=== PATIENT | female | born 1940 | race Caucasian/White ===

== ENCOUNTER 2023-10-02 03:58 | Emergency (ER) | payer MEDICARE, SELFPAY ==
[2023-10-02 04:01] VITALS: BP 169/112
[2023-10-02 05:02] VITALS: BMI 41.4
[2023-10-02 05:03] VITALS: BP 155/79
[2023-10-02 05:04] VITALS: BP 155/79
[2023-10-02 06:00] VITALS: BP 149/80
--- NOTE | 2023-10-02 06:40 | ED.GENMED ---
History of Present Illness
General
Chief Complaint: Vaginal Bleeding
Source: patient
Exam Limitations: none
Time Seen by Provider: 10/02/23 06:29
Nursing documentation reviewed up to this point in time: agreed with
Travel History
Have you had any contact with someone who has COVID-19?: No
Do you have any symptoms of coronavirus? Fever > 100 degrees, chills, cough, shortness of breath, sore throat, loss of taste or smell, muscle aches, or headache?: No
History of Present Illness
History of Present Illness:
83 yo female presents to the emergency department complaining of vaginal bleeding just prior to arrival, at about 3:30 AM. She has had vaginal irritation and itching for the past few days. She has a history of vaginitis in the past.
Past History
Past History
ED Past Medical History: HTN, Hypercholesterolemia and Renal failure
ED Past Surgical History: Gynecological (D&C) and Other (Cataracts)
Social History
Tobacco: Non-smoker
Alcohol: None
Drug: None
Living: with family
Review of Systems
Review of Systems
Allergies reviewed?: Yes
All Other Systems: Not applicable
Constitutional: Reports no symptoms
EENT: Reports no symptoms
Respiratory: Reports no symptoms
Cardiac: Reports no symptoms
ABD/GI: Reports no symptoms
: Reports bleeding and other (Vaginal itching and irritation)
Musculoskeletal: Reports no symptoms
Skin: Reports no symptoms
Neurological: Reports no symptoms
Endocrine: Reports no symptoms
Hematologic/Lymphatic: Reports no symptoms
Psychiatric: Reports no symptoms
Phy Exam
Physical Exam
Physical Exam:
Physical Exam
General: no apparent distress, not acutely ill
Neck: supple. no meningeal signs. normal posterior pharynx
HEENT: Pupils equal round reactive to light, EOMI
Lungs: no acute respiratory distress.
Abdomen: not tender. no CVAT
Neuro: alert and oriented. no focal neurological deficits
Skin: no rash
Psychiatric: well kept. interactive and cooperative
Extremities: no edema. good distal pulses
Genitourinary Exam Female
Exam Female: no adnexal tenderness and vaginal bleeding (External abrasion left)
Vaginal Exam: other (Left-sided abrasion)
Vaginal Bleeding: minimal (External bleeding)
Vaginal Discharge: other (Whitish)
Course
Vital Signs
Initial and Last Documented VS:
Initial Vital Signs
Temp Pulse Resp BP Pulse Ox
98 F 112 20 169/112 95
10/02/23 04:01 10/02/23 04:01 10/02/23 04:01 10/02/23 04:01 10/02/23 04:01
Last Documented Vital Signs
Temp Pulse Resp BP Pulse Ox
98 F 104 18 155/79 97
10/02/23 04:01 10/02/23 05:03 10/02/23 05:03 10/02/23 05:04 10/02/23 05:03
MDM/Problems Addressed
Differential Diagnosis Includes:
Vaginal bleeding, vaginal candidiasis, vaginal laceration
MDM/Problems Addressed:
83-year-old female with external vaginal bleeding excoriation from vaginal candidiasis. Treat with Diflucan and clotrimazole.
*Pulse Oximetry
Patient hypoxic: no
*EKG
Interpreted by ED Provider?: NA
*Identity Management Developer Interpretation
Rate: Identity Management Developer- N/A
*Critical Care Note
Total Time (30-74mins, 75-104mins- exclusive of procedures): Not Applicable
Patient Management
Social determinants of health affecting care: Living situation
Escalation/DeEscalation of care consider admission/obs:
Admit not indicated
ED Attending Note
-
Portions of this chart may have been created with voice recognition software.� Occasional wrong word or��sound alike� substitutions may have occurred due to the inherent limitations of voice recognition software.
Discharge Plan
Departure
Patient Disposition: Home (Routine Discharge)
Date of Disposition: 10/02/23
Time of Disposition: 06:46
Patient with high blood pressure during this ER visit?: Yes
Condition: Good
Discharge Problem:
Acute candidiasis of vulva and vagina, External vaginal abrasion
Instructions: Vaginal Yeast Infection, Adult ED, BLOOD PRESSURE
Prescriptions:
New
clotrimazole [Clotrimazole-7] 1 % cream
1 appful vaginal HS Qty: 45 0RF
No Action
acetaminophen [Tylenol Arthritis] 650 mg Tablet Extended Release
650 mg PO DAILY
levothyroxine 75 mcg Tablet
75 mcg PO DAILY
simvastatin 20 mg Tablet
20 mg PO HS
hydrochlorothiazide 25 mg Tablet
25 mg PO DAILY
lisinopril 40 mg Tablet
40 mg PO HS
Referrals:
Saloni Bangura DO [Family Provider] - Call in 1-3 days for appt
Interventions
Interventions:
*Risk Screen - Suicide Last Done: 10/02/23 04:01
*General Assessment Last Done: 10/02/23 04:01
*Neglect/Abuse Screening Last Done: 10/02/23 04:01
ED- Fall Risk Assessment Last Done: 10/02/23 05:06
*ED COVID-19 Vaccine History Last Done: 10/02/23 05:03
ED-Female Genitourinary Assessment Last Done: 10/02/23 05:06
Discharge Date and Time
Print Language: [place]ET[place]ESE
[2023-10-02 06:42] VITALS: BP 149/80
[2023-10-02] MEDS: DIFLUCAN 150 MG PO (07:22)
[2023-10-02 07:53] VITALS: BP 156/91
== END 2023-10-02 07:54 | disposition home or self-care (01) ==
LOC: EMR 03:58
PROVIDERS: EMERGENCY PHYSICIAN Emergency Medicine; FAMILY PHYSICIAN Family Medicine
DX: B37.31 Acute candidiasis of vulva and vagina (principal); S30.814A Abrasion of vagina and vulva, initial encounter; X58.XXXA Exposure to other specified factors, initial encounter; I10 Essential (primary) hypertension; E78.00 Pure hypercholesterolemia, unspecified
CPT/HCPCS: 99282

== ENCOUNTER 2023-10-12 06:57 | Emergency (ER) | payer MEDICARE, BC, SELFPAY ==
[2023-10-12 07:05] VITALS: BP 144/96
[2023-10-12 08:39] LABS: % Eosinophils 2.9 % (0-6); % Immature Granulocytes 0.4 % (0-0.5); % Lymphocytes 28.1 % (20.5-51.1); % Monocytes 10.6 % (1.7-9.3); Absolute Basophils 0.1 10^3/uL (0-0.2); Absolute Eosinophils 0.2 10^3/uL (0-0.7); Absolute Lymphocytes 2.2 10^3/uL (1.2-3.4); Absolute Monocytes 0.8 10^3/uL (0.1-0.6); Absolute Neutrophils 4.4 10^3/uL (1.4-6.5); Hematocrit 36.2 % (37.0-47.0); Hemoglobin 12.2 g/dL (12.0-16.0); Mean Corp Hgb Conc. 33.7 g/dL (33.0-37.0); Mean Corpuscular Hgb 32.5 pg (27.0-31.0); Mean Corpuscular Volume 96.5 fL (81.0-99.0); Mean Platelet Volume 9.8 fL (7.4-10.4); Nucleated Red Blood Cells % 0 %; Platelet Count 381 10^3/uL (130-400); Red Blood Cell Count 3.75 10^6/uL (4.20-5.40); Red Cell Dist. Width 12.8 % (11.5-14.5); Urine Albumin Negative (Neg - Trace); Urine Bilirubin Negative (Negative); Urine Character Clear (Clear); Urine Color Yellow; Urine Glucose Negative (Negative); Urine Ketone Negative (Negative); Urine Leukocyte 1+ (Negative); Urine Nitrite Negative (Negative); Urine Occult Blood 4+ (Negative); Urine Specific Gravity 1.015 (<1.030); Urine Urobilinogen Negative (Neg - 1+); White Blood Cell Count 7.7 10^3/uL (4.8-10.8)
[2023-10-12 08:49] LABS: Urine Bacteria Few (Negative); Urine Red Blood Cell 30-40 /HPF (0-2); Urine Squamous Cell 16-20 /LPF (Few)
[2023-10-12 08:59] LABS: ALT (SGPT) 18 U/L (0-35); AST (SGOT) 25 U/L (14-36); Albumin 4.5 g/dl (3.5-5.0); Alkaline Phosphatase 68 U/L (38-126); Blood Urea Nitrogen 30 mg/dl (7-17); Carbon Dioxide 23 mmol/L (22-30); Chloride 102 mmol/L (98-107); Glucose 112 mg/dl (70-99); Potassium 4.6 mmol/L (3.5-5.1); Sodium 133 mmol/L (135-145); Total Bilirubin 0.7 mg/dl (0.2-1.3); Total Protein 7.8 g/dl (6.3-8.2)
--- NOTE | 2023-10-12 09:17 | ED.GENMED ---
History of Present Illness
General
Chief Complaint: Urinary Symptoms
Source: patient
Exam Limitations: none
Time Seen by Provider: 10/12/23 08:54
Travel History
Have you had any contact with someone who has COVID-19?: No
Do you have any symptoms of coronavirus? Fever > 100 degrees, chills, cough, shortness of breath, sore throat, loss of taste or smell, muscle aches, or headache?: No
History of Present Illness
History of Present Illness:
83-year-old female recurrent vaginal or urinary bleeding. Seen last week for same. Symptoms seem to have improved. Just got the clotrimazole 2 days ago. Had been using Monistat. Had some burning when placing the Monistat. Bleeding had stopped
until this morning when she wiped and saw bright red blood. She feels fine however. Some burning with urination but no frequency. Patient is unsure if it is vaginal or urinary. No fever chills abdominal pain or other complaints
Past History
Past History
ED Past Medical History: HTN, Hypercholesterolemia and Renal failure
ED Past Surgical History: Gynecological (D&C) and Other (Cataracts)
Social History
Tobacco: Non-smoker
Alcohol: None
Drug: None
Living: with family
Phy Exam
Physical Exam
Physical Exam:
GENERAL: Alert and oriented in no apparent distress
EYE: Orbits normal.
NECK: Supple
CARDIAC: Regular rate and rhythm without any obvious murmurs.
LUNGS: Clear breath sounds,normal
ABDOMEN: Soft, without focal tenderness or distention
:. No active bleeding. Small area of irritation along the right labia minora with some induration although no erythema or drainage.
NEUROLOGICAL: Alert and oriented , grossly non-focal
SKIN: Warm and dry
PSYCH: Normal and appropriate interaction.
Course
Orders/Labs/Results
Orders:
Orders
10/12/23 08:29
Comprehensive Metabolic Panel Urgent
04/16/24 08:30
Complete Blood Count/With Diff Urgent
Urinalysis Reflex To Culture Urgent
Date Specimen was Collected: 10/12/23
Time Specimen was Collected: 07:12
Urine Microscopic Reflex Cult Urgent
Urine Culture Urgent
CESAR Source: U
Specimen Description:
Date Specimen was Collected: 10/12/23
Time Specimen was Collected: 07:12
10/12/23 09:16
CT Abd/pel Without Iv Or Oral Urgent
Comment:
Reason For Exam: Hematuria
Abnormal Lab Results
10/12/23 10/12/23
08:29 08:30
RBC 3.75 L 10^6/uL
(4.20-5.40)
Hct 36.2 L %
(37.0-47.0)
MCH 32.5 H pg
(27.0-31.0)
Absolute Monos (auto) 0.8 H 10^3/uL
(0.1-0.6)
Monocytes % 10.6 H %
(1.7-9.3)
Sodium 133 L mmol/L
(135-145)
BUN 30 H mg/dl
(7-17)
Creatinine 1.4 H mg/dL
(0.6-1.0)
Glucose 112 H mg/dl
(70-99)
Ur Occult Blood Reflex 4+ A
(Negative)
Leukocyte Esterase Rfl 1+ A
(Negative)
Urine RBC 30-40 A /HPF
(0-2)
Urine Bacteria (Reflex) Few A
(Negative)
10/12/23 08:30
10/12/23 08:29
Vital Signs
Initial and Last Documented VS:
Initial Vital Signs
Temp Pulse Resp BP Pulse Ox
97.4 F 97 20 144/96 96
10/12/23 07:05 10/12/23 07:05 10/12/23 07:05 10/12/23 07:05 10/12/23 07:05
Last Documented Vital Signs
Temp Pulse Resp BP Pulse Ox
97.4 F 97 20 144/96 96
10/12/23 07:05 10/12/23 07:05 10/12/23 07:05 10/12/23 07:05 10/12/23 07:05
MDM/Problems Addressed
Differential Diagnosis Includes:
Bleeding likely secondary to vaginal wall irritation with some induration. No obvious infectious etiology. Continue cream and follow-up with [facility] and urology.
*Radiology
Radiology exam reviewed: radiology read reviewed (No acute findings. Small seroma right inguinal region)
*Pulse Oximetry
Patient hypoxic: no
*Critical Care Note
Total Time (30-74mins, 75-104mins- exclusive of procedures): Not Applicable
Data Reviewed
Review of Other/Old Records Reveals: Labs, Records and Testing
Update Note
Update Note:
Patient updated on findings. Medically stable for discharge. Also contacted [facility] for follow-up. Copy of the report given to patient.
ED Attending Note
-
Portions of this chart may have been created with voice recognition software.� Occasional wrong word or��sound alike� substitutions may have occurred due to the inherent limitations of voice recognition software.
Discharge Plan
Departure
Patient Disposition: Home (Routine Discharge)
Date of Disposition: 10/12/23
Time of Disposition: 11:25
Patient with high blood pressure during this ER visit?: Yes
Discharge Problem:
Vaginal bleeding, Labial swelling, Renal insufficiency
Instructions: BLOOD PRESSURE
Prescriptions:
No Action
acetaminophen [Tylenol Arthritis] 650 mg Tablet Extended Release
650 mg PO DAILY
levothyroxine 75 mcg Tablet
75 mcg PO DAILY
simvastatin 20 mg Tablet
20 mg PO HS
hydrochlorothiazide 25 mg Tablet
25 mg PO DAILY
lisinopril 40 mg Tablet
40 mg PO HS
clotrimazole [Clotrimazole-7] 1 % cream
1 appful vaginal HS Qty: 45 0RF
Referrals:
Latesha Rausch NP [Family Provider] -
Michell Frias MD [Active] - Follow up in 5-7 days
Activity Restrictions/Additional Instructions:
Follow-up closely with the urologist
Also call the [facility] physician listed for close follow-up
Continue the cream
Return sooner with increased bleeding pain fever swelling or any other concerning symptoms
Interventions
Interventions:
*Risk Screen - Suicide Last Done: 10/12/23 07:05
*General Assessment Last Done: 10/12/23 07:05
*Neglect/Abuse Screening Last Done: 10/12/23 07:05
*Nursing Disposition Last Done: 10/12/23 11:56
ED-Female Genitourinary Assessment Last Done: 10/12/23 09:30
Discharge Date and Time
Discharge Date/Time: 10/12/23 11:56
Print Language: [id number]
== END 2023-10-12 11:56 | disposition home or self-care (01) ==
LOC: EMR 06:57
PROVIDERS: Emergency Medicine; EMERGENCY PHYSICIAN Emergency Medicine
DX: N93.9 Abnormal uterine and vaginal bleeding, unspecified (principal); N28.9 Disorder of kidney and ureter, unspecified; I10 Essential (primary) hypertension
CPT/HCPCS: 99284; 74176; 80053; 81003; 81015; 85025; 87086